=== PATIENT | female | born 1940 | race Caucasian/White ===

== ENCOUNTER 2019-07-12 17:14 | Inpatient (IN) | payer MEDICARE, BC ==
[~2019-07-12] VITALS: Ht 170.2 cm; Wt 117.0 kg
[2019-07-12] MEDS ORDERED: aspirin 81mg tab.chew PO ONE (17:25)
[2019-07-12] MEDS ORDERED: heparin 10,000 units/1 ML INJ IV PRN ×2 (17:40→18:00)
[2019-07-12 17:49] LABS: BASOPHILS % (AUTO) 0.3 % (0-1); EOSINOPHILS % (AUTO) 0 % (0-6); HEMATOCRIT 34.4 % (35.0-45.0); HEMOGLOBIN 11.6 g/dl (12.0-16.0); LYMPHOCYTES # (AUTO) 0.8 X10'3 (1.1-4.8); LYMPHOCYTES % (AUTO) 7.1 % (21-51); MEAN CORPUSCULAR HEMOGLOBIN 29.6 PG (27.0-31.0); MEAN CORPUSCULAR HGB CONC 33.8 g/dL (33.0-36.5); MEAN CORPUSCULAR VOLUME 87.5 FL (78-98); MEAN PLATELET VOLUME 7.1 FL (7.4-10.4); MONOCYTES # (AUTO) 0.6 X10'3 (0-0.9); MONOCYTES % (AUTO) 4.8 % (2-12); NEUTROPHILS # (AUTO) 10.2 X10'3 (1.8-7.7); NEUTROPHILS % (AUTO) 87.8 % (42-75); PLATELET COUNT 197 X10'3 (140-440); RED BLOOD COUNT 3.94 X10'6 (4.20-5.60); RED CELL DISTRIBUTION WIDTH 13.9 % (11.5-14.5); WHITE BLOOD COUNT 11.6 X10'3 (4.5-11.0)
[2019-07-12] MEDS ORDERED: heparin 25,000 UNIT/250ml bag 250 ML IV SCH (17:56)
[2019-07-12] MEDS ORDERED: potassium CL 10mEq/100ml bag 100 ML IV PRN ×2 (18:00)
[2019-07-12] MEDS ORDERED: magnesium hydroxide 30ml (MOM) UD suspension PO PRN (18:00)
[2019-07-12] MEDS ORDERED: magnesium Cl slow-release 64mg tablet PO PRN (18:00)
[2019-07-12] MEDS ORDERED: acetaminophen 325mg tablet PO PRN ×2 (18:00)
[2019-07-12] MEDS ORDERED: nitroGLYCERIN 0.4mg SUBLingual tab SL PRN ×2 (18:00→18:45)
[2019-07-12] MEDS ORDERED: magnesium 4gm in 100ml NS 100 ML IV PRN (18:00)
[2019-07-12] MEDS ORDERED: morphine 2 MG/ML inj. syringe IV PRN ×2 (18:00)
[2019-07-12] MEDS ORDERED: magnesium 2GM in 50ml NS 50 ML IV PRN (18:00)
[2019-07-12] MEDS ORDERED: ondansetron/PF 4mg/2ml inj IV PRN (18:00)
[2019-07-12] MEDS ORDERED: mag hydrox/Alum hydrox/simeth 30ml oral suspension PO PRN (18:00)
[2019-07-12] MEDS ORDERED: potassium Cl 20 mEq SR tablet PO PRN (18:00)
[2019-07-12 18:02] LABS: PARTIAL THROMBOPLASTIN TIME 38 SECONDS (22-32)
[2019-07-12 18:05] LABS: ALANINE AMINOTRANSFERASE 21 U/L (12-78); ALBUMIN/GLOBULIN RATIO 0.7 (1.1-1.5); ALKALINE PHOSPHATASE 81 IU/L (46-116); ANION GAP 10 (8-16); ASPARTATE AMINO TRANSFERASE 24 U/L (10-37); BILIRUBIN,TOTAL 0.4 MG/DL (0.1-1.0); BLOOD UREA NITROGEN 12 MG/DL (7-18); BUN/CREATININE RATIO 13.2 (6.6-38.0); CALCIUM 9.7 MG/DL (8.5-10.1); CHLORIDE 104 MMOL/L (99-107); CREATININE 0.91 MG/DL (0.40-0.90); GLUCOSE 146 MG/DL (70-104); POTASSIUM 3.7 MMOL/L (3.5-5.1); SODIUM 140 MMOL/L (135-145); TOTAL CARBON DIOXIDE 26.3 MMOL/L (24-32); TOTAL PROTEIN 7.1 G/DL (6.4-8.2); eGFR 60 ML/MIN
[2019-07-12 18:13] LABS: MAGNESIUM 1.7 MG/DL (1.5-2.4)
[2019-07-12] MEDS: normal saline 1000ml 1,000 ML IV SCH ×2 (18:15→18:16)
[2019-07-12] MEDS: heparin 25,000 UNIT/250ml bag 250 ML IV SCH ×2 (18:17→22:34)
[2019-07-12 18:26] LABS: HEMOGLOBIN A1C 6.5 % (4.5-6.2)
--- NOTE | 2019-07-12 18:29 | NUR ---
HEPARIN CONT AT SAME RATE THAT WAS INFUSING FROM [facility] WHICH WAS 1000 UNITS/HR - WILL CHECK TRANSFER RECORD TO SEE WHEN 6 HR REDRAW IS DUE AND WILL ENTER LAB FOR THAT TIME.
[2019-07-12 18:37] LABS: PHOSPHORUS 2.7 MG/DL (2.3-4.5)
[2019-07-12] MEDS ORDERED: metoprolol tartrate 1mg/ml inj IV PRN (18:45)
[2019-07-12] MEDS ORDERED: regadenoson 0.4mg/5ml syringe IV ONE (18:45)
[2019-07-12] MEDS ORDERED: aminophylline 250mg/10ml inj. IV PRN (18:45)
[2019-07-12] MEDS: mycophenolate mofetil 250mg capsule PO SCH (20:00)
[2019-07-12] MEDS: metoprolol tartrate 12.5mg (1/2 tablet) PO SCH (20:00)
[2019-07-12] MEDS: K and/or MAG REPLACEMENT MC SCH (20:00)
[2019-07-12] MEDS ORDERED: PANT-47 PO (20:09)
[2019-07-12] MEDS ORDERED: EZET10TA6 PO ×2 (20:09→21:07)
[2019-07-12] MEDS ORDERED: [UNRECOGNIZED DRUG - OTHER] (20:09)
[2019-07-12] MEDS ORDERED: ERGO400T7 PO (20:09)
[2019-07-12] MEDS ORDERED: EVER0.25 PO ×2 (20:09)
[2019-07-12] MEDS ORDERED: METO-292 PO (20:09)
[2019-07-12] MEDS ORDERED: LOSA25TA96 PO (20:09)
[2019-07-12] MEDS ORDERED: POTA10CA44 PO (20:09)
[2019-07-12] MEDS ORDERED: HCTZ25T PO (20:09)
[2019-07-12] MEDS ORDERED: MYCO250C46 PO (20:09)
[2019-07-12] MEDS ORDERED: DOXY50CA2 PO (20:09)
[2019-07-12] MEDS ORDERED: [UNRECOGNIZED DRUG - OTHER] (20:09)
[2019-07-12] MEDS ORDERED: FLUT1DIS20 INH (20:09)
[2019-07-12] MEDS ORDERED: ASPI-1265 PO (20:09)
[2019-07-12] MEDS ORDERED: ESCI10TA61 PO (20:09)
[2019-07-12] MEDS ORDERED: UBID1CAP60 PO (20:09)
[2019-07-12] MEDS ORDERED: [UNRECOGNIZED DRUG - CODE] PO (20:09)
[2019-07-12] MEDS ORDERED: temazepam 15mg capsule PO PRN (21:00)
--- NOTE | 2019-07-12 21:00 | NUR ---
Patient in room PCU 3027. I have received report from Yahir JOHNSON and had the opportunity to ask questions and assume patient care.
[2019-07-12] MEDS ORDERED: AZEL6DRO5 RIGHTEYE (21:05)
[2019-07-12] MEDS ORDERED: AZEL6DRO5 OP (21:05)
[2019-07-12] MEDS ORDERED: CYCL1DRO EACHEYE (21:05)
[2019-07-12] MEDS ORDERED: POTA10TA19 PO (21:05)
[2019-07-12] MEDS ORDERED: VIT1CAPS46 PO (21:05)
[2019-07-12] MEDS ORDERED: TRAM1TAB7 PO (21:05)
[2019-07-12] MEDS ORDERED: POTA10TA PO (21:38)
[2019-07-12] MEDS ORDERED: POTA-84 PO (21:38)
[2019-07-12 22:00] VITALS: BP 127/61
--- NOTE | 2019-07-12 22:00 | NUR ---
Admission Medication reconciliation was completed, awaiting MD to verify and put in orders. Patient doesn't have Transplant specific medications with her, daughter will bring them in the morning. Patient uses a home bipap as well and that will be brought in by the family member in the AM.
[2019-07-13] VITALS (15 sets, daily range): BP systolic 123–171; BP diastolic 44–95
[2019-07-13] MEDS ORDERED: TRAM50TA2 PO (04:50)
[2019-07-13 05:33] LABS: BASOPHILS % (AUTO) 0.4 % (0-1); EOSINOPHILS # (AUTO) 0.2 X10'3 (0-0.9); HEMATOCRIT 33.5 % (35.0-45.0); HEMOGLOBIN 11.5 g/dl (12.0-16.0); LYMPHOCYTES # (AUTO) 1.4 X10'3 (1.1-4.8); LYMPHOCYTES % (AUTO) 18.7 % (21-51); MEAN CORPUSCULAR HEMOGLOBIN 29.6 PG (27.0-31.0); MEAN CORPUSCULAR HGB CONC 34.3 g/dL (33.0-36.5); MEAN CORPUSCULAR VOLUME 86.1 FL (78-98); MEAN PLATELET VOLUME 7.3 FL (7.4-10.4); MONOCYTES # (AUTO) 0.5 X10'3 (0-0.9); MONOCYTES % (AUTO) 6.8 % (2-12); NEUTROPHILS # (AUTO) 5.5 X10'3 (1.8-7.7); NEUTROPHILS % (AUTO) 72.1 % (42-75); PLATELET COUNT 197 X10'3 (140-440); RED BLOOD COUNT 3.89 X10'6 (4.20-5.60); WHITE BLOOD COUNT 7.6 X10'3 (4.5-11.0)
[2019-07-13 05:44] LABS: ALANINE AMINOTRANSFERASE 21 U/L (12-78); ALBUMIN/GLOBULIN RATIO 0.8 (1.1-1.5); ALKALINE PHOSPHATASE 76 IU/L (46-116); ANION GAP 7 (8-16); ASPARTATE AMINO TRANSFERASE 24 U/L (10-37); BILIRUBIN,TOTAL 0.3 MG/DL (0.1-1.0); BLOOD UREA NITROGEN 13 MG/DL (7-18); BUN/CREATININE RATIO 14.1 (6.6-38.0); CALCIUM 9.5 MG/DL (8.5-10.1); CHLORIDE 105 MMOL/L (99-107); CREATININE 0.92 MG/DL (0.40-0.90); GLUCOSE 121 MG/DL (70-104); POTASSIUM 3.5 MMOL/L (3.5-5.1); SODIUM 141 MMOL/L (135-145); TOTAL CARBON DIOXIDE 29.5 MMOL/L (24-32); eGFR 59 ML/MIN
[2019-07-13 05:47] LABS: CHOL/HDL RATIO 3.7 (0.00-4.99); CHOLESTEROL 202 MG/DL (0-200); HDL CHOLESTEROL 54 MG/DL (35-60); LDL CHOLESTEROL 127 MG/DL (50-100); MAGNESIUM 1.6 MG/DL (1.5-2.4); PHOSPHORUS 2.5 MG/DL (2.3-4.5); TRIGLYCERIDES 142 MG/DL (20-135)
--- NOTE | 2019-07-13 06:24 | NUR ---
Patient in room PCU 3027. I have received report from Mercedez JOHNSON and had the opportunity to ask questions and assume patient care.
--- NOTE | 2019-07-13 06:41 | NUR ---
Problems reprioritized. Patient report given, questions answered & plan of care reviewed with Wilda JOHNSON.
[2019-07-13] MEDS: CefTRIAXone/D5W-Rocephin 1gm 50 ML IV SCH (07:39)
[2019-07-13] MEDS: K and/or MAG REPLACEMENT MC SCH ×2 (08:00→20:00)
--- NOTE | 2019-07-13 08:14 | NUR ---
PAGER ID: [phone] MESSAGE: Wilda JOHNSON [phone] , B Luis, please complete med reconciliation and continue home meds, pt has home med anti rejection, Zortress, in pharmacy that cant be given until this is done, thanks!
[2019-07-13] MEDS: metoclopramide 5 mg/ml inj IV PRN (08:38)
[2019-07-13] MEDS: mycophenolate mofetil 250mg capsule PO SCH ×2 (08:54→20:56)
[2019-07-13] MEDS: metoprolol tartrate 12.5mg (1/2 tablet) PO SCH ×2 (08:54→19:36)
[2019-07-13] MEDS: aspirin 81mg tablet.DR PO SCH (08:55)
[2019-07-13] MEDS ORDERED: metoclopramide 10mg tablet PO PRN (09:15)
[2019-07-13] MEDS ORDERED: EVEROLIMUS 0.25 MG PO SCH ×2 (10:00→12:40)
--- NOTE | 2019-07-13 11:59 | NUR ---
PAGER ID: [phone] MESSAGE: Wilda JOHNSON [phone] Christi Smith [id number], Sally was negative, already has a diet order, is it okay that I go ahead and let her eat? thanks!
--- NOTE | 2019-07-13 12:27 | NUR ---
Sent a page to Dr Cliff benavides heparin gtt PAGER ID: [phone] MESSAGE: Wilda JOHNSON [phone] 302Christi Irvin, do you want to keep this patient on a heparin drip? or would you like me to dc it? thanks!
[2019-07-13] MEDS: heparin 25,000 UNIT/250ml bag 250 ML IV SCH (12:50)
[2019-07-13] MEDS: normal saline 1000ml 1,000 ML IV SCH (13:31)
--- NOTE | 2019-07-13 14:51 | NUR ---
Sent another page to Dr. Coronado PAGER ID: [phone] MESSAGE: Wilda JOHNSON [phone] Christi Smith [id number], juan scan was negative, do you want to keep pt on heparin ggt? Migdalia wants carotid US and tilt table ordered for pt. thanks! Addendum: 07/13/19 at 1508 by Sari Schultz RN Dr. Coronado responded via telephone, received orders to discontinue heparin gtt and order the tilt table and carotid US. Will continue to monitor closely.
[2019-07-13] MEDS: albuterol 2.5 MG/3 ML nebule NEB SCH ×2 (14:59→21:18)
--- NOTE | 2019-07-13 18:00 | NUR ---
Patient in room PCU 3027. I have received report from Wilda JOHNSON and had the opportunity to ask questions and assume patient care.
--- NOTE | 2019-07-13 18:06 | NUR ---
Problems reprioritized. Patient report given, questions answered & plan of care reviewed with Mercedez JOHNSON.
[2019-07-13] MEDS: cycloSPORINE 0.05% ophthalmic emulsion EACHEYE SCH (19:37)
[2019-07-13] MEDS: budesonide 0.5mg/2ml UD nebule IH SCH (20:00)
[2019-07-13] MEDS ORDERED: AZELASTINE HCL OP SCH (20:00)
[2019-07-13] MEDS ORDERED: mycophenolate mofetil 250mg capsule PO SCH (20:00)
[2019-07-13] MEDS: EVEROLIMUS 0.25 MG PO SCH (20:57)
[2019-07-14] VITALS (7 sets, daily range): BP systolic 119–162; BP diastolic 60–88
[2019-07-14] MEDS: albuterol 2.5 MG/3 ML nebule NEB SCH ×4 (02:34→20:00)
--- NOTE | 2019-07-14 06:10 | NUR ---
Patient in room PCU 3027. I have received report from KATIA JOHNSON and had the opportunity to ask questions and assume patient care.
--- NOTE | 2019-07-14 06:18 | NUR ---
Problems reprioritized. Patient report given, questions answered & plan of care reviewed with Wilda JOHNSON.
[2019-07-14 06:36] LABS: BASOPHILS % (AUTO) 0.4 % (0-1); EOSINOPHILS # (AUTO) 0.1 X10'3 (0-0.9); EOSINOPHILS % (AUTO) 1.9 % (0-6); HEMATOCRIT 30.6 % (35.0-45.0); HEMOGLOBIN 10.5 g/dl (12.0-16.0); LYMPHOCYTES # (AUTO) 1.1 X10'3 (1.1-4.8); MEAN CORPUSCULAR HEMOGLOBIN 29.6 PG (27.0-31.0); MEAN CORPUSCULAR HGB CONC 34.2 g/dL (33.0-36.5); MEAN CORPUSCULAR VOLUME 86.6 FL (78-98); MEAN PLATELET VOLUME 7.5 FL (7.4-10.4); MONOCYTES # (AUTO) 0.4 X10'3 (0-0.9); MONOCYTES % (AUTO) 7.7 % (2-12); NEUTROPHILS # (AUTO) 4.1 X10'3 (1.8-7.7); PLATELET COUNT 164 X10'3 (140-440); RED BLOOD COUNT 3.53 X10'6 (4.20-5.60); RED CELL DISTRIBUTION WIDTH 13.8 % (11.5-14.5); WHITE BLOOD COUNT 5.7 X10'3 (4.5-11.0)
[2019-07-14 06:48] LABS: ALANINE AMINOTRANSFERASE 16 U/L (12-78); ALBUMIN 2.9 G/DL (3.4-5.0); ALBUMIN/GLOBULIN RATIO 0.8 (1.1-1.5); ALKALINE PHOSPHATASE 70 IU/L (46-116); ANION GAP 9 (8-16); ASPARTATE AMINO TRANSFERASE 20 U/L (10-37); BILIRUBIN,TOTAL 0.3 MG/DL (0.1-1.0); BLOOD UREA NITROGEN 13 MG/DL (7-18); BUN/CREATININE RATIO 16.3 (6.6-38.0); CALCIUM 9.7 MG/DL (8.5-10.1); CHLORIDE 107 MMOL/L (99-107); GLUCOSE 130 MG/DL (70-104); MAGNESIUM 1.7 MG/DL (1.5-2.4); PHOSPHORUS 2.8 MG/DL (2.3-4.5); POTASSIUM 3.4 MMOL/L (3.5-5.1); SODIUM 142 MMOL/L (135-145); TOTAL CARBON DIOXIDE 26.2 MMOL/L (24-32); TOTAL PROTEIN 6.5 G/DL (6.4-8.2); eGFR 70 ML/MIN
[2019-07-14] MEDS ORDERED: aspirin 81mg tab.chew PO SCH (08:00)
[2019-07-14] MEDS ORDERED: ESCITALOPRAM OXALATE 5 MG TABLET PO SCH ×2 (08:00→21:00)
[2019-07-14] MEDS ORDERED: POTASSIUM CHLORIDE PO SCH (08:00)
[2019-07-14] MEDS: K and/or MAG REPLACEMENT MC SCH ×2 (08:00→20:00)
[2019-07-14] MEDS ORDERED: non-formulary drug (Fluticasone/Salmeterol (Advair 250-50 Diskus) 1 PUFFS) INH SCH (08:00)
[2019-07-14] MEDS: cycloSPORINE 0.05% ophthalmic emulsion EACHEYE SCH ×2 (08:00→20:00)
[2019-07-14] MEDS: budesonide 0.5mg/2ml UD nebule IH SCH ×2 (08:42→20:00)
[2019-07-14] MEDS: mycophenolate mofetil 250mg capsule PO SCH ×2 (08:49→20:53)
[2019-07-14] MEDS: fluticasone nasal spray 16GM bottle NS SCH (08:49)
[2019-07-14] MEDS: losartan 25mg tablet PO SCH (08:49)
[2019-07-14] MEDS: CefTRIAXone/D5W-Rocephin 1gm 50 ML IV SCH (08:49)
[2019-07-14] MEDS: DOXYCYCLINE 100MG CAPSULE PO SCH (08:50)
[2019-07-14] MEDS: aspirin 81mg tablet.DR PO SCH (08:50)
[2019-07-14] MEDS: ezetimibe 10mg tablet PO SCH (08:50)
[2019-07-14] MEDS: EVEROLIMUS 0.25 MG PO SCH ×2 (08:51→20:53)
[2019-07-14] MEDS: multivitamins, therapeutics tablet PO SCH (08:51)
[2019-07-14] MEDS: pantoprazole 40mg Tablet.DR PO SCH (08:51)
[2019-07-14] MEDS: potassium Cl 20 mEq SR tablet PO PRN ×3 (08:51→16:48)
[2019-07-14] MEDS: metoprolol tartrate 12.5mg (1/2 tablet) PO SCH ×2 (08:52→19:29)
[2019-07-14] MEDS: HYDROchlorothiazide 25mg tablet PO SCH (08:52)
[2019-07-14] MEDS: normal saline 1000ml 1,000 ML IV SCH (12:14)
[2019-07-14] MEDS: metoclopramide 5 mg/ml inj IV PRN (12:36)
--- NOTE | 2019-07-14 18:00 | NUR ---
Patient in room PCU 3027. I have received report from Wilda JOHNSON and had the opportunity to ask questions and assume patient care.
--- NOTE | 2019-07-14 18:05 | NUR ---
Problems reprioritized. Patient report given, questions answered & plan of care reviewed with Mercedez JOHNSON.
[2019-07-15] VITALS (27 sets, daily range): BP systolic 143–200; BP diastolic 11–121
[2019-07-15] MEDS: albuterol 2.5 MG/3 ML nebule NEB SCH ×2 (02:17→09:50)
--- NOTE | 2019-07-15 02:30 | NUR ---
Patient's SYS 199/70 HR 90. solar field service technician notified of anticipated PRN 5 mg metoprolol IV push on ekg monitor tech 52.
[2019-07-15] MEDS: normal saline 1000ml 1,000 ML IV SCH (03:10)
[2019-07-15] MEDS ORDERED: traMADol 50MG tablet PO ONE (03:15)
--- NOTE | 2019-07-15 05:26 | NUR ---
Hypertensive Patient is restless, anxious, and having back pain. MD Muhammad called for a one time dose of Ultram, will pass on to day shift for possible continuation of Ultram from Med Rec. Patient states that she is very anxious about tilt table test and is very worried, education was given on tilt table test but patient is still very worried. At 0400 SBP 170, asymptomatic. At 0540, BP 160/67 and heart rate 67; patient asymptomatic and sitting up in a chair, will continue to monitor.
[2019-07-15 06:11] LABS: BASOPHILS % (AUTO) 0.5 % (0-1); EOSINOPHILS # (AUTO) 0.1 X10'3 (0-0.9); EOSINOPHILS % (AUTO) 1.5 % (0-6); HEMATOCRIT 31.7 % (35.0-45.0); HEMOGLOBIN 10.9 g/dl (12.0-16.0); LYMPHOCYTES # (AUTO) 1.2 X10'3 (1.1-4.8); LYMPHOCYTES % (AUTO) 20.1 % (21-51); MEAN CORPUSCULAR HEMOGLOBIN 29.8 PG (27.0-31.0); MEAN CORPUSCULAR HGB CONC 34.3 g/dL (33.0-36.5); MEAN CORPUSCULAR VOLUME 86.9 FL (78-98); MEAN PLATELET VOLUME 7.5 FL (7.4-10.4); MONOCYTES # (AUTO) 0.4 X10'3 (0-0.9); MONOCYTES % (AUTO) 7.2 % (2-12); NEUTROPHILS # (AUTO) 4.3 X10'3 (1.8-7.7); NEUTROPHILS % (AUTO) 70.7 % (42-75); PLATELET COUNT 182 X10'3 (140-440); RED BLOOD COUNT 3.65 X10'6 (4.20-5.60); WHITE BLOOD COUNT 6.1 X10'3 (4.5-11.0)
--- NOTE | 2019-07-15 06:19 | NUR ---
Problems reprioritized. Patient report given, questions answered & plan of care reviewed with Daxa JOHNSON.
[2019-07-15 06:28] LABS: ALANINE AMINOTRANSFERASE 22 U/L (12-78); ALBUMIN 3.4 G/DL (3.4-5.0); ALBUMIN/GLOBULIN RATIO 0.9 (1.1-1.5); ALKALINE PHOSPHATASE 76 IU/L (46-116); ANION GAP 10 (8-16); ASPARTATE AMINO TRANSFERASE 21 U/L (10-37); BILIRUBIN,TOTAL 0.3 MG/DL (0.1-1.0); BLOOD UREA NITROGEN 12 MG/DL (7-18); BUN/CREATININE RATIO 13.3 (6.6-38.0); CALCIUM 9.8 MG/DL (8.5-10.1); CHLORIDE 106 MMOL/L (99-107); GLUCOSE 115 MG/DL (70-104); MAGNESIUM 1.6 MG/DL (1.5-2.4); PHOSPHORUS 2.7 MG/DL (2.3-4.5); POTASSIUM 3.7 MMOL/L (3.5-5.1); SODIUM 141 MMOL/L (135-145); TOTAL CARBON DIOXIDE 24.7 MMOL/L (24-32); TOTAL PROTEIN 7.3 G/DL (6.4-8.2); eGFR 61 ML/MIN
--- NOTE | 2019-07-15 07:10 | NUR ---
Patient in room PCU 3027. I have received report from Erica JOHNSON and had the opportunity to ask questions and assume patient care.
[2019-07-15] MEDS: fluticasone nasal spray 16GM bottle NS SCH (07:42)
[2019-07-15] MEDS: DOXYCYCLINE 100MG CAPSULE PO SCH (07:42)
[2019-07-15] MEDS: losartan 25mg tablet PO SCH (07:43)
[2019-07-15] MEDS: cycloSPORINE 0.05% ophthalmic emulsion EACHEYE SCH (07:45)
[2019-07-15] MEDS: pantoprazole 40mg Tablet.DR PO SCH (07:47)
[2019-07-15] MEDS: ezetimibe 10mg tablet PO SCH (07:47)
[2019-07-15] MEDS: multivitamins, therapeutics tablet PO SCH (07:47)
[2019-07-15] MEDS: HYDROchlorothiazide 25mg tablet PO SCH (07:48)
[2019-07-15] MEDS: metoprolol tartrate 12.5mg (1/2 tablet) PO SCH (07:48)
[2019-07-15] MEDS: aspirin 81mg tablet.DR PO SCH (07:48)
[2019-07-15] MEDS: CefTRIAXone/D5W-Rocephin 1gm 50 ML IV SCH (07:49)
[2019-07-15] MEDS: EVEROLIMUS 0.25 MG PO SCH (09:00)
[2019-07-15] MEDS: mycophenolate mofetil 250mg capsule PO SCH (09:33)
[2019-07-15] MEDS: budesonide 0.5mg/2ml UD nebule IH SCH (09:50)
--- NOTE | 2019-07-15 10:51 | NUR ---
PAGER ID: [phone] MESSAGE: [phone] Bhavana Smith has been cleared by Cardio to discharge CHAVEZ Mittal [phone]
[2019-07-15] MEDS ORDERED: amLODIPine 5mg tablet PO ONE (11:10)
[2019-07-15] MEDS ORDERED: METO25TA6 PO (11:59)
[2019-07-15] MEDS ORDERED: ZET10T PO (11:59)
--- NOTE | 2019-07-15 12:53 | NUR ---
Patient was cleared to discharge home. Patients blood pressure has been stable this shift. All other vital signs stable. Pt. declined having any symptoms today. Appointment with Dr. Tinsley made for 07/28/19 @ 3295 to get event recorder. PIV removed. Tele removed. Pt. left in stable condition escorted by her significant other. All discharge instructions and medications reviewed. Pt. verbalized understanding.
[2019-07-19] MEDS ORDERED: ergocalciferol (Vitamin D) 50,000 unit capsule PO SCH (08:00)
== END 2019-07-15 12:53 | disposition home or self-care (01) | DRG 280 ==
LOC: ER 17:15 → ED HOLD 17:56 → EDBEDREQ 19:02 → PCU 3S 20:05
PROVIDERS: ADMIT Family Medicine; ATTEND Family Medicine
PROC: 4A02XM4 Measurement of Cardiac Total Activity, External Approach (ICD-10-PCS; principal; 2019-07-13)
PROC: 3E033HZ Introduction of Radioactive Substance into Peripheral Vein, Percutaneous Approach (ICD-10-PCS; 2019-07-13)
PROC: 5A09357 Assistance with Respiratory Ventilation, Less than 24 Consecutive Hours, Continuous Positive Airway Pressure (ICD-10-PCS; 2019-07-14)
DX: I21.4 Non-ST elevation (NSTEMI) myocardial infarction (principal); N17.0 Acute kidney failure with tubular necrosis; Z68.41 Body mass index [BMI] 40.0-44.9, adult; Z94.0 Kidney transplant status; D72.825 Bandemia; E66.01 Morbid (severe) obesity due to excess calories; N18.9 Chronic kidney disease, unspecified; E78.5 Hyperlipidemia, unspecified; F41.1 Generalized anxiety disorder; R55 Syncope and collapse; F41.9 Anxiety disorder, unspecified; G47.33 Obstructive sleep apnea (adult) (pediatric); G89.29 Other chronic pain; J45.909 Unspecified asthma, uncomplicated; I12.9 Hypertensive chronic kidney disease with stage 1 through stage 4 chronic kidney disease, or unspecified chronic kidney disease; Z79.51 Long term (current) use of inhaled steroids; Z79.899 Other long term (current) drug therapy; Z85.828 Personal history of other malignant neoplasm of skin
CPT/HCPCS: 36415; 71045; 78452; 80053; 80061; 83036; 83605; 83735; 83880; 84100; 84145; 84443; 84484; 85025; 85610; 85730; 87040; 87081; 93005; 93017; 93306; 93660; 93880; 94640; 94760; 97116; 97161; 97530; 99291; A9500; G0378; J0696; J1644; J2765; J2785; J3490; J7030; J7517; J7626

== ENCOUNTER 2020-05-20 23:06 | Emergency (ER) | payer MEDICARE, BC ==
[~2020-05-20] VITALS: Ht 170.2 cm; Wt 119.1 kg
[~2020-05-20 23:06] MED LIST: ASPI-1265 PO; AZEL6DRO5 OP; CYCL1DRO EACHEYE; DOXY50CA2 PO; ERGO400T7 PO; ESCI10TA61 PO; EVER0.25 PO; EZET10TA6 PO; FLUT1DIS20 INH; HCTZ25T PO; LOSA25TA96 PO; METO-292 PO; METO25TA6 PO; MYCO250C46 PO; PANT-47 PO; POTA-84 PO; TRAM50TA2 PO; UBID1CAP60 PO; VIT1CAPS46 PO; ZET10T PO; [UNRECOGNIZED DRUG - CODE] PO; [UNRECOGNIZED DRUG - OTHER]
[2020-05-20 23:37] LABS: BASOPHILS # (AUTO) 0.1 X10'3 (0-0.2); BASOPHILS % (AUTO) 0.8 % (0-1); EOSINOPHILS # (AUTO) 0.1 X10'3 (0-0.9); EOSINOPHILS % (AUTO) 0.9 % (0-6); HEMATOCRIT 40.8 % (35.0-45.0); HEMOGLOBIN 13.7 g/dl (12.0-16.0); LYMPHOCYTES # (AUTO) 1.7 X10'3 (1.1-4.8); LYMPHOCYTES % (AUTO) 19.5 % (21-51); MEAN CORPUSCULAR HEMOGLOBIN 29.8 PG (27.0-31.0); MEAN CORPUSCULAR HGB CONC 33.7 g/dL (33.0-36.5); MEAN CORPUSCULAR VOLUME 88.4 FL (78-98); MEAN PLATELET VOLUME 7.4 FL (7.4-10.4); MONOCYTES # (AUTO) 0.6 X10'3 (0-0.9); MONOCYTES % (AUTO) 6.7 % (2-12); NEUTROPHILS # (AUTO) 6.2 X10'3 (1.8-7.7); NEUTROPHILS % (AUTO) 72.1 % (42-75); PLATELET COUNT 209 X10'3 (140-440); RED BLOOD COUNT 4.61 X10'6 (4.20-5.60); RED CELL DISTRIBUTION WIDTH 14.4 % (11.5-14.5); WHITE BLOOD COUNT 8.6 X10'3 (4.5-11.0)
[2020-05-20] MEDS ORDERED: diltiazem 5mg/ml 5ml inj. IV ONE ×3 (23:40)
[2020-05-20 23:41] LABS: PARTIAL THROMBOPLASTIN TIME 29 SECONDS (22-32)
[2020-05-20 23:47] LABS: ETHANOL < 0.010 GM/DL (0.0-0.010); TOTAL CARBON DIOXIDE 29.3 MMOL/L (24-32); TROPONIN I < 0.04 NG/ML (0.0-0.05)
[2020-05-21] MEDS ORDERED: normal saline 1000ml 1,000 ML IV ONE
[2020-05-21] MEDS ORDERED: normal saline 1000ML IV soln IVB ONE
[2020-05-21 00:23] LABS: ALANINE AMINOTRANSFERASE 20 U/L (12-78); ALBUMIN 3.8 G/DL (3.4-5.0); ALBUMIN/GLOBULIN RATIO 0.9 (1.1-1.5); ALKALINE PHOSPHATASE 135 IU/L (46-116); ANION GAP 6 (8-16); ASPARTATE AMINO TRANSFERASE 14 U/L (10-37); BILIRUBIN,TOTAL 0.2 MG/DL (0.1-1.0); BLOOD UREA NITROGEN 18 MG/DL (7-18); BUN/CREATININE RATIO 18.2 (6.6-38.0); CHLORIDE 104 MMOL/L (99-107); CREATININE 0.99 MG/DL (0.40-0.90); GLUCOSE 155 MG/DL (70-104); MAGNESIUM 1.6 MG/DL (1.5-2.4); POTASSIUM 3.5 MMOL/L (3.5-5.1); SODIUM 139 MMOL/L (135-145); TOTAL PROTEIN 8.1 G/DL (6.4-8.2); eGFR 54 ML/MIN
[2020-05-21 02:00] VITALS: BP 143/86
[2020-05-21 02:07] LABS: URINE AMPHETAMINE SCREEN NEGATIVE (Neg); URINE BARBITUATE SCREEN NEGATIVE (Neg); URINE BENZODIAZEPINES SCREEN NEGATIVE (Neg); URINE CANNABINOID SCREEN NEGATIVE (Neg); URINE COCAINE SCREEN NEGATIVE (Neg); URINE METHADONE SCREEN NEGATIVE (Neg); URINE OPIATE SCREEN NEGATIVE (Neg); URINE PHENCYCLIDINE SCREEN NEGATIVE (Neg)
== END 2020-05-21 01:50 | disposition home or self-care (01) ==
LOC: ER 23:06
DX: I48.0 Paroxysmal atrial fibrillation (principal); R00.2 Palpitations; R07.89 Other chest pain; I10 Essential (primary) hypertension; F41.9 Anxiety disorder, unspecified; Z98.890 Other specified postprocedural states; Z88.5 Allergy status to narcotic agent; Z88.1 Allergy status to other antibiotic agents; Z79.82 Long term (current) use of aspirin; Z79.899 Other long term (current) drug therapy
CPT/HCPCS: 36415; 80053; 80305; 80320; 83735; 83880; 84484; 85025; 85610; 85730; 93005; 96361; 96374; 99285; J7030; J3490

== ENCOUNTER 2023-09-28 21:35 | Emergency (ER) | payer MEDICARE, BC ==
[~2023-09-28] VITALS: Ht 170.2 cm; Wt 103.0 kg
[~2023-09-28 21:35] MED LIST changes: +ESCI-8 PO; -ESCI10TA61 PO; +EZET10TA7 PO; -HCTZ25T PO; +HYDR25TA5 PO; +LOP25T PO; +LOSA-415 PO; -LOSA25TA96 PO; -METO25TA6 PO; -ZET10T PO; +[UNRECOGNIZED DRUG - CODE] PO; -[UNRECOGNIZED DRUG - CODE] PO
[2023-09-28 21:43] VITALS: TEMP 98.5
[2023-09-28] MEDS: ondansetron 4mg rapidly disintigrating tab PO ONE (22:40)
[2023-09-28] MEDS: predniSONE 20 mg tablet PO ONE (22:40)
[2023-09-28] MEDS: morphine 2 MG/ML inj. syringe IM ONE (22:41)
[2023-09-28] MEDS: orphenadrine citrate 60mg/2ml inj. IM ONE (22:49)
[2023-09-28] MEDS ORDERED: CYCL-1 PO (22:51)
[2023-09-28] MEDS ORDERED: PRED20TA PO (22:51)
[2023-09-28] MEDS ORDERED: OXYC-145 PO (22:51)
[2023-09-28 23:01] VITALS: BP 144/84; PULSE 88; RESP 18; O2SAT 99
== END 2023-09-28 23:03 | disposition home or self-care (01) ==
LOC: ER 21:35
DX: S39.012A Strain of muscle, fascia and tendon of lower back, initial encounter (principal); Z88.8 Allergy status to other drugs, medicaments and biological substances; I10 Essential (primary) hypertension; F41.9 Anxiety disorder, unspecified; X58.XXXA Exposure to other specified factors, initial encounter; Y93.89 Activity, other specified; Y92.89 Other specified places as the place of occurrence of the external cause; Y99.8 Other external cause status
CPT/HCPCS: 96372; 99284; J2270; J2360; J7512